=== PATIENT | female | born 1980 | race Caucasian/White ===

== ENCOUNTER 2022-01-07 02:53 | Emergency (ER) | payer BC ==
[2022-01-07 03:29] LABS: RED BLOOD COUNT 3.03 M/UL (4.00-5.10)
[2022-01-07 03:47] LABS: BUN/CREATININE RATIO 39 (0-10)
[2022-01-07 04:03] LABS: HEMOGLOBIN 6.8 gm/dl (12.3-15.3); WHITE BLOOD COUNT 33.8 K/UL (4.5-11.0)
[2022-01-07 10:42] LABS: BUN/CREATININE RATIO 37 (0-10)
== END 2022-01-07 15:05 | disposition short-term general hospital (02) ==
LOC: ER1 02:53
PROVIDERS: Family Medicine; Physician Assistant
DX: R10.11 Right upper quadrant pain (principal); R10.13 Epigastric pain; R10.31 Right lower quadrant pain; D72.829 Elevated white blood cell count, unspecified; D64.9 Anemia, unspecified; R31.9 Hematuria, unspecified; E87.1 Hypo-osmolality and hyponatremia; R10.811 Right upper quadrant abdominal tenderness; R10.813 Right lower quadrant abdominal tenderness
CPT/HCPCS: 0240U; 36600; 71045; 74018; 76705; 80048; 80053; 81001; 82803; 83605; 83690; 84703; 85025; 85610; 85730; 86140; 86850; 86900; 86901; 86920; 87040; 87077; 87086; 87186; 93005; 96374; 96375; 96376; 99285; J2270; J2405; J2543; Q9967

== ENCOUNTER 2022-01-24 14:32 | Emergency (ER) | payer BC ==
[2022-01-24 16:01] LABS: RED BLOOD COUNT 2.44 M/UL (4.00-5.10); WHITE BLOOD COUNT 6.9 K/UL (4.5-11.0)
[2022-01-24 16:21] LABS: BUN/CREATININE RATIO 10 (0-10)
[2022-01-24 16:23] LABS: HEMOGLOBIN 6.1 gm/dl (12.3-15.3)
[2022-01-25 01:35] LABS: HEMOGLOBIN 7.4 gm/dl (12.3-15.3)
== END 2022-01-25 01:57 | disposition home or self-care (01) ==
LOC: ER1 14:32
PROVIDERS: Family Medicine; Preventive Medicine Occupational Medicine
DX: D64.9 Anemia, unspecified (principal)
CPT/HCPCS: 36430; 80053; 85014; 85018; 85025; 86850; 86900; 86901; 86920; 99284; J2185; P9016